=== PATIENT | male | born 1990 | race Caucasian/White ===

== ENCOUNTER 2017-02-07 21:33 | Emergency (ER) | payer BC ==
[~2017-02-07 21:33] MED LIST: AMOXICILLIN500 M1 PO; NO MEDICATIONS; PERCOCET 7.5-31 EACH PO; ROBITUSSIN A-C-S1 ML PO; ROXICET 5/325 SO5 ML PO; VICODIN 5/500 T1 TAB PO
== END 2017-02-07 22:13 | disposition home or self-care (01) ==
LOC: CED 21:33
DX: S39.012A Strain of muscle, fascia and tendon of lower back, initial encounter (principal); F17.200 Nicotine dependence, unspecified, uncomplicated; X50.9XXA Other and unspecified overexertion or strenuous movements or postures, initial encounter; Y92.9 Unspecified place or not applicable
CPT/HCPCS: 99283

== ENCOUNTER 2017-03-16 22:17 | Emergency (ER) | payer BC ==
[~2017-03-16] VITALS: Ht 182.9 cm; Wt 113.4 kg
--- NOTE | ~2017-03-16 | CR172 ---
[facility] A Service of [facility] & [facility] RADIOLOGY TEXT RESULTS PATIENT: TRAVIS CRUZ LOCATION: [place] : [birth year] UNIT #: [id number] AGE: [address]: Lori Carr APRN SEX: M ORDER DR: [id number] [facility] [address] [place], [place] [address] [id number] E MR#: [id number] Acc #: [id number] NAME: TRAVIS CRUZ. : 1990 SEX: M STUDY DATE/TIME: 03/17/2017 0:07 UNIT: [place] ROOM: STUDY DESCRIPTION: CR Knee 3 Views Lt Attending Physician: Lori Carr A.P.R.N. Ordering Physician: Lori Carr A.P.R.N. Primary Care Physician: No Primary Care Physician MEDICAL IMAGING REPORT This report is preliminary unless electronic signature is present EXAM Left knee, 03/17/2017. HISTORY 27-year-old male in the ED with left knee pain after twisting injury yesterday. TECHNIQUE Three-view left knee series. FINDINGS The examination is negative. No fracture, dislocation, or other acute osseous abnormality. No visible joint effusion. IMPRESSION Negative left knee series. Dictated by... Madi Tucker M.D. THIS IS AN ELECTRONICALLY VERIFIED REPORT Madi Tucker M.D. at 03/17/2017 9:52 PM RGW/viry TD: 03/17/2017 08:53 JOB #: [id number] MEDICAL IMAGING REPORT Page 1 of 1 COPY
== END 2017-03-17 00:53 | disposition home or self-care (01) ==
LOC: CED 22:17 → CFTX 22:17
DX: S83.92XA Sprain of unspecified site of left knee, initial encounter (principal); F17.200 Nicotine dependence, unspecified, uncomplicated; X50.1XXA Overexertion from prolonged static or awkward postures, initial encounter
CPT/HCPCS: 29505; 73562; 96372; 99283; J1885